=== PATIENT | female | born 1960 | race Caucasian/White ===

== ENCOUNTER 2016-08-24 05:45 | Day surgery (SDC) | payer OTHER ==
[~2016-08-24] VITALS: Ht 160 cm; Wt 83.9 kg
[2016-08-24 06:37] VITALS: O2SAT 99
[2016-08-24] MEDS ORDERED: fentaNYL CITRATE 250 MCG/5 ML AMP IV ONE (07:31)
[2016-08-24] MEDS ORDERED: SILVER NITRATE APPLICATOR 1 STICK STICK..EA. TP ONE (07:31)
[2016-08-24] MEDS ORDERED: DEXAMETHASONE SOD PHOSPHATE 4 MG/ML VIAL IVP ONE (07:31)
[2016-08-24] MEDS ORDERED: LR 1,000 ML IV.SOLN IV ONE (07:31)
[2016-08-24] MEDS ORDERED: SEVOFLURANE 15 MIN GAS INH ONE (07:31)
[2016-08-24] MEDS ORDERED: NS 1000 ML BAG IV ONE (07:31)
[2016-08-24] MEDS ORDERED: MIDAZOLAM HCL 5 MG/5 ML VIAL IVP ONE (07:31)
[2016-08-24] MEDS ORDERED: KETOROLAC TROMETHAMINE 30 MG VIAL IVP ONE (07:31)
[2016-08-24] MEDS ORDERED: PROPOFOL 200MG/ 20ML VIAL (DIPRIVAN) IV ONE (07:31)
[2016-08-24] MEDS ORDERED: LR 1,000 ML IV ONE (07:37)
[2016-08-24] MEDS ORDERED: NALOXONE HCL 0.4 MG/ML AMP (NARCAN) IVP PRN (07:45)
[2016-08-24] MEDS ORDERED: fentaNYL CITRATE/PF 100 MCG/2 ML AMP IVP PRN (07:45)
[2016-08-24] MEDS ORDERED: ePHEDrine sulfate 50 MG/ML VIAL IVP PRN (07:45)
[2016-08-24] MEDS ORDERED: KETOROLAC TROMETHAMINE 30 MG VIAL IM PRN (07:45)
[2016-08-24] MEDS ORDERED: NALBUPHINE HCL 10 MG/ML AMP IVP PRN (07:45)
[2016-08-24] MEDS ORDERED: ONDANSETRON HCL 4 MG/2 ML VIAL IVP PRN ×3 (07:45→09:15)
[2016-08-24] MEDS ORDERED: DIPHENHYDRAMINE INJ 50 MG/ML VIAL IVP PRN (07:45)
[2016-08-24] MEDS ORDERED: OXYCODONE/ACETAMINOPHEN 5-325 TABLET PO PRN ×2 (09:15)
[2016-08-24] MEDS ORDERED: PROMETHAZINE HCL 25 MG/ML AMP IM PRN ×2 (09:15)
[2016-08-24] MEDS ORDERED: IBUPROFEN 600 MG TABLET PO PRN (09:15)
[2016-08-24 10:05] VITALS: BP 148/75; PULSE 70; RESP 14
== END 2016-08-24 10:20 | disposition home or self-care (01) ==
LOC: SMU 05:45 → SDS 05:45
PROVIDERS: ATTEND Obstetrics & Gynecology
DX: N88.2 Stricture and stenosis of cervix uteri (principal)
CPT/HCPCS: 36415; 57522; 58301; 86886; 86900; 86901; J1100; J1885; J2250; J2704; J3010; J7030; J7120